=== PATIENT | female | born 1935 | race Caucasian/White ===

== ENCOUNTER 2022-04-01 22:06 | Inpatient (IN) ==
[2022-04-01] MEDS ORDERED: ONDANSETRON 4 MG/2 ML VIAL IV STA (22:43)
[2022-04-01] MEDS ORDERED: SODIUM CHLORIDE 0.9% 1,000 ML IV STA (22:43)
[2022-04-01 22:52] LABS: Basophils % 0.3 % (0.0-0.8); Eosinophils % 0.1 % (0.00-10.9); Hematocrit 37.9 VOL% (35.7-47.0); Hemoglobin 12.1 GM/DL (12.0-16.0); Immature Granulocytes % 0.5 %; Immature Granulocytes Absolute 0.05 #; Lymphocytes # 0.9 10*3/uL (1.4-4.0); Lymphocytes % 9.4 % (21.3-54.2); Mean Corpuscular HGB Conc 31.9 GM/DL (32-36); Mean Corpuscular Volume 90.5 FL (87-102); Mean Platelet Volume 11.6 FL (9.6-12.0); Monocytes # 0.1 10*3/uL (0.11-0.8); Monocytes % 0.6 % (1.7-12.7); Neutrophils % 89.1 % (38.7-73.9); Platelet Count 287 T/CUMM (130-400); Red Blood Count 4.19 MC/CUMM (3.8-5.5); Red Cell Distribution Width 13.1 % (9.3-17.3)
[2022-04-01 23:04] LABS: Albumin 3.8 G/DL (3.4-5.0); Bilirubin,Total 0.5 MG/DL (0.20-1.00); Calcium 10.2 MG/DL (8.5-10.1); Osmolality,Calculated 281.8 MOS/KG (273-304); Potassium 4.1 MMOL/L (3.5-5.1); Total Protein 7.3 G/DL (6.4-8.2)
[2022-04-02] MEDS ORDERED: PROMETHAZINE INJ 25 MG in SODIUM CHLORIDE 0.9% 50 ML IV STA (00:18)
[2022-04-02] MEDS ORDERED: PROMETHAZINE 25 MG/1 ML VIAL ONE (00:27)
[2022-04-02 00:45] LABS: Mucus,Urine Occasional /LPF (Occasional); RBC,Urine 51 /HPF (0-4)
[2022-04-02 00:46] LABS: Urine Appearance Clear (Clear); Urine Color Yellow (Yellow)
[2022-04-02 00:47] LABS: Bilirubin,Urine Negative (Negative); Blood, Urine Large mg/dL (Negative); Glucose,Urine (UA) Negative (Negative); Ketones,Urine Negative (Negative); Nitrite,Urine Positive (Negative); Protein,Urine 30 mg/dL (Negative); Urine Specific Gravity 1.005 (1.001-1.035); Urine Urobilinogen 0.2 eU/dL (<2.0); Urine pH 5.5 (4.5-8.0)
[2022-04-02] MEDS ORDERED: cefTRIAXone 1,000 MG in SODIUM CHLORIDE 0.9% 100 ML IV STA (00:49)
[2022-04-02] MEDS ORDERED: SODIUM CHLORIDE 0.9% 1,000 ML IV STA (01:01)
[2022-04-02] MEDS ORDERED: DILTIAZEM 50 MG/10 ML VIAL IV STA (02:00)
[2022-04-02] MEDS ORDERED: MORPHINE 2 MG/1 ML SYRINGE IV PRN (02:16)
[2022-04-02] MEDS ORDERED: GLUCAGON 1 MG VIAL IM PRN (02:16)
[2022-04-02] MEDS ORDERED: hydrALAZINE 20 MG/1 ML VIAL IV PRN (02:16)
[2022-04-02] MEDS ORDERED: DEXTROSE 10% 250 ML BAG IV PRN (02:23)
[2022-04-02] MEDS: SODIUM CHLORIDE 0.9% 1,000 ML IV SCH ×2 (04:07→17:00)
[2022-04-02 04:58] LABS: Basophils % 0.2 % (0.0-0.8); Hematocrit 30.8 VOL% (35.7-47.0); Immature Granulocytes % 0.5 %; Immature Granulocytes Absolute 0.09 #; Lymphocytes # 0.5 10*3/uL (1.4-4.0); Lymphocytes % 2.4 % (21.3-54.2); Mean Corpuscular HGB Conc 32.5 GM/DL (32-36); Mean Corpuscular Volume 92.8 FL (87-102); Mean Platelet Volume 11.5 FL (9.6-12.0); Monocytes % 5.4 % (1.7-12.7); Neutrophils % 91.5 % (38.7-73.9); Platelet Count 217 T/CUMM (130-400); Red Blood Count 3.32 MC/CUMM (3.8-5.5); Red Cell Distribution Width 13.2 % (9.3-17.3); White Blood Count 19.3 T/CUMM (4-12)
[2022-04-02 05:20] LABS: Alanine Aminotransferase 15 U/L (13-56); Albumin 2.6 G/DL (3.4-5.0); Alkaline Phosphatase 81 U/L (45-117); Aspartate Amino Transferase 14 U/L (0-37); Bilirubin,Total < 0.39 MG/DL (0.20-1.00); Blood Urea Nitrogen 20 MG/DL (7-18); Calcium 9.1 MG/DL (8.5-10.1); Carbon Dioxide 23 MMOL/L (21-32); Chloride 111 MMOL/L (98-107); Glucose 171 MG/DL (74-106); Potassium 3.8 MMOL/L (3.5-5.1); Sodium 143 MMOL/L (136-145); Total Protein 5.6 G/DL (6.4-8.2)
[2022-04-02 05:21] LABS: Band Neutrophils 5 % (0-10); Lymphocytes 2 % (20-55); Platelet Estimate Adequate; Total Cells Counted 100
[2022-04-02] MEDS: THYROID 60 MG TABLET PO SCH (06:33)
[2022-04-02] MEDS: INSULIN LISPRO 100 UNIT/ML SUBCUT SCH ×4 (08:13→20:37)
[2022-04-02] MEDS: MULTIVITAMIN (OCUVITE) TABLET PO SCH (09:42)
[2022-04-02] MEDS: CLOPIDOGREL 75 MG TABLET PO SCH (09:42)
[2022-04-02] MEDS: CHOLECALCIFEROL 1,000 UNIT TABLET PO SCH (09:42)
[2022-04-02] MEDS: DABIGATRAN 150 MG CAPSULE PO SCH ×2 (09:42→20:36)
[2022-04-02] MEDS: LOSARTAN 50 MG TABLET PO SCH (09:42)
[2022-04-02] MEDS: DILTIAZEM CD 300 MG CAPSULE PO SCH (09:43)
[2022-04-02] MEDS: PANTOPRAZOLE 40 MG TABLET PO SCH (09:43)
[2022-04-02] MEDS: ASCORBIC ACID 500 MG TABLET PO SCH ×2 (09:43→20:36)
[2022-04-02] MEDS: VENLAFAXINE 75 MG TABLET PO SCH (09:43)
[2022-04-02] MEDS: MAGNESIUM CHLORIDE 64 MG TABLET PO SCH ×2 (09:43→20:36)
[2022-04-02] MEDS: DONEPEZIL 5 MG TABLET PO SCH (20:36)
[2022-04-03] MEDS: cefTRIAXone 1,000 MG in SODIUM CHLORIDE 0.9% 100 ML IV SCH (02:55)
[2022-04-03 04:37] LABS: Basophils # 0.1 10*3/uL (0.0-0.2); Basophils % 0.4 % (0.0-0.8); Eosinophils # 0.1 10*3/uL (0.0-0.87); Eosinophils % 0.6 % (0.00-10.9); Hematocrit 29.7 VOL% (35.7-47.0); Hemoglobin 9.4 GM/DL (12.0-16.0); Immature Granulocytes % 0.5 %; Immature Granulocytes Absolute 0.07 #; Lymphocytes # 1.7 10*3/uL (1.4-4.0); Lymphocytes % 12.3 % (21.3-54.2); Mean Corpuscular HGB Conc 31.6 GM/DL (32-36); Mean Corpuscular Volume 93.1 FL (87-102); Mean Platelet Volume 12.3 FL (9.6-12.0); Monocytes # 1.6 10*3/uL (0.11-0.8); Monocytes % 11.1 % (1.7-12.7); Neutrophils % 75.1 % (38.7-73.9); Platelet Count 207 T/CUMM (130-400); Red Blood Count 3.19 MC/CUMM (3.8-5.5); Red Cell Distribution Width 13.3 % (9.3-17.3); White Blood Count 13.94 T/CUMM (4-12)
[2022-04-03 05:07] LABS: Albumin 2.6 G/DL (3.4-5.0); Calcium 8.6 MG/DL (8.5-10.1); Osmolality,Calculated 286.1 MOS/KG (273-304); Potassium 3.9 MMOL/L (3.5-5.1)
[2022-04-03] MEDS: THYROID 60 MG TABLET PO SCH (05:54)
[2022-04-03] MEDS: LOSARTAN 50 MG TABLET PO SCH (09:17)
[2022-04-03] MEDS: MAGNESIUM CHLORIDE 64 MG TABLET PO SCH ×2 (09:17→20:30)
[2022-04-03] MEDS: CHOLECALCIFEROL 1,000 UNIT TABLET PO SCH (09:17)
[2022-04-03] MEDS: PANTOPRAZOLE 40 MG TABLET PO SCH (09:17)
[2022-04-03] MEDS: DILTIAZEM CD 300 MG CAPSULE PO SCH (09:18)
[2022-04-03] MEDS: MULTIVITAMIN (OCUVITE) TABLET PO SCH (09:18)
[2022-04-03] MEDS: VENLAFAXINE 75 MG TABLET PO SCH (09:18)
[2022-04-03] MEDS: DABIGATRAN 150 MG CAPSULE PO SCH ×2 (09:18→20:30)
[2022-04-03] MEDS: ASCORBIC ACID 500 MG TABLET PO SCH ×2 (09:18→20:30)
[2022-04-03] MEDS: CLOPIDOGREL 75 MG TABLET PO SCH (09:18)
[2022-04-03] MEDS: INSULIN LISPRO 100 UNIT/ML SUBCUT SCH ×4 (09:55→20:30)
[2022-04-03] MEDS: ONDANSETRON 4 MG/2 ML VIAL IV PRN (10:16)
[2022-04-03] MEDS: DONEPEZIL 5 MG TABLET PO SCH (20:30)
[2022-04-03] MEDS ORDERED: PROMETHAZINE INJ 12.5 MG in SODIUM CHLORIDE 0.9% 50 ML IV PRN (20:48)
[2022-04-04] MEDS: cefTRIAXone 1,000 MG in SODIUM CHLORIDE 0.9% 100 ML IV SCH (02:00)
[2022-04-04] MEDS: THYROID 60 MG TABLET PO SCH ×2 (06:10→09:03)
[2022-04-04] MEDS: ASCORBIC ACID 500 MG TABLET PO SCH ×2 (08:47→21:36)
[2022-04-04] MEDS: MULTIVITAMIN (OCUVITE) TABLET PO SCH (08:47)
[2022-04-04] MEDS: VENLAFAXINE 75 MG TABLET PO SCH (08:48)
[2022-04-04] MEDS: MAGNESIUM CHLORIDE 64 MG TABLET PO SCH ×2 (08:48→21:36)
[2022-04-04] MEDS: PANTOPRAZOLE 40 MG TABLET PO SCH (08:48)
[2022-04-04] MEDS: CHOLECALCIFEROL 1,000 UNIT TABLET PO SCH (08:48)
[2022-04-04] MEDS: DILTIAZEM CD 300 MG CAPSULE PO SCH (08:48)
[2022-04-04] MEDS: LOSARTAN 50 MG TABLET PO SCH (08:49)
[2022-04-04] MEDS: CLOPIDOGREL 75 MG TABLET PO SCH (08:50)
[2022-04-04] MEDS: DABIGATRAN 150 MG CAPSULE PO SCH ×2 (08:53→21:36)
[2022-04-04] MEDS: ONDANSETRON 4 MG/2 ML VIAL IV PRN (10:08)
[2022-04-04] MEDS: INSULIN LISPRO 100 UNIT/ML SUBCUT SCH ×2 (10:12→19:10)
[2022-04-04 10:49] LABS: Basophils % 0.2 % (0.0-0.8); Eosinophils % 0.1 % (0.00-10.9); Hematocrit 29.6 VOL% (35.7-47.0); Hemoglobin 9.7 GM/DL (12.0-16.0); Immature Granulocytes % 0.6 %; Immature Granulocytes Absolute 0.09 #; Lymphocytes # 1.7 10*3/uL (1.4-4.0); Lymphocytes % 11.5 % (21.3-54.2); Mean Corpuscular HGB Conc 32.8 GM/DL (32-36); Mean Corpuscular Volume 90.2 FL (87-102); Mean Platelet Volume 11.8 FL (9.6-12.0); Monocytes # 1.3 10*3/uL (0.11-0.8); Monocytes % 8.8 % (1.7-12.7); Neutrophils % 78.8 % (38.7-73.9); Platelet Count 228 T/CUMM (130-400); Red Blood Count 3.28 MC/CUMM (3.8-5.5); Red Cell Distribution Width 12.7 % (9.3-17.3); White Blood Count 14.91 T/CUMM (4-12)
[2022-04-04 11:13] LABS: Calcium 8.8 MG/DL (8.5-10.1); Osmolality,Calculated 281.4 MOS/KG (273-304); Potassium 3.3 MMOL/L (3.5-5.1)
[2022-04-04] MEDS ORDERED: MAGNESIUM SULF RIDER 4 GM/100 ML PREMIX IV ONE (12:21)
[2022-04-04] MEDS: POTASSIUM CHLORIDE 20 MEQ TABLET PO SCH ×2 (12:43→18:30)
[2022-04-04] MEDS ORDERED: ESCITALOPRAM 10 MG TABLET PO ONE (21:00)
[2022-04-04] MEDS: DONEPEZIL 5 MG TABLET PO SCH (21:36)
[2022-04-05] MEDS: cefTRIAXone 1,000 MG in SODIUM CHLORIDE 0.9% 100 ML IV SCH (02:55)
[2022-04-05 04:56] LABS: Basophils % 0.2 % (0.0-0.8); Eosinophils # 0.1 10*3/uL (0.0-0.87); Eosinophils % 0.6 % (0.00-10.9); Hematocrit 30.4 VOL% (35.7-47.0); Hemoglobin 9.7 GM/DL (12.0-16.0); Immature Granulocytes % 0.5 %; Immature Granulocytes Absolute 0.06 #; Lymphocytes # 1.4 10*3/uL (1.4-4.0); Lymphocytes % 11.7 % (21.3-54.2); Mean Corpuscular HGB Conc 31.9 GM/DL (32-36); Mean Corpuscular Volume 91.6 FL (87-102); Mean Platelet Volume 12.3 FL (9.6-12.0); Monocytes # 1.3 10*3/uL (0.11-0.8); Monocytes % 10.5 % (1.7-12.7); Neutrophils % 76.5 % (38.7-73.9); Platelet Count 234 T/CUMM (130-400); Red Blood Count 3.32 MC/CUMM (3.8-5.5); Red Cell Distribution Width 12.8 % (9.3-17.3); White Blood Count 12.24 T/CUMM (4-12)
[2022-04-05 05:17] LABS: Calcium 9.4 MG/DL (8.5-10.1); Osmolality,Calculated 279.5 MOS/KG (273-304); Potassium 4.3 MMOL/L (3.5-5.1)
[2022-04-05] MEDS: THYROID 60 MG TABLET PO SCH (06:10)
[2022-04-05] MEDS: MULTIVITAMIN (OCUVITE) TABLET PO SCH (09:15)
[2022-04-05] MEDS: DABIGATRAN 150 MG CAPSULE PO SCH ×2 (09:15→21:34)
[2022-04-05] MEDS: MAGNESIUM CHLORIDE 64 MG TABLET PO SCH ×2 (09:16→21:34)
[2022-04-05] MEDS: ASCORBIC ACID 500 MG TABLET PO SCH ×2 (09:16→21:34)
[2022-04-05] MEDS: DILTIAZEM CD 300 MG CAPSULE PO SCH (09:16)
[2022-04-05] MEDS: LOSARTAN 50 MG TABLET PO SCH (09:16)
[2022-04-05] MEDS: CLOPIDOGREL 75 MG TABLET PO SCH (09:16)
[2022-04-05] MEDS: VENLAFAXINE 75 MG TABLET PO SCH (09:16)
[2022-04-05] MEDS: CHOLECALCIFEROL 1,000 UNIT TABLET PO SCH (09:17)
[2022-04-05] MEDS: PANTOPRAZOLE 40 MG TABLET PO SCH (09:17)
[2022-04-05] MEDS: DONEPEZIL 5 MG TABLET PO SCH (21:35)
[2022-04-06] MEDS: cefTRIAXone 1,000 MG in SODIUM CHLORIDE 0.9% 100 ML IV SCH (02:42)
[2022-04-06] MEDS: THYROID 60 MG TABLET PO SCH (06:22)
[2022-04-06 08:01] VITALS: BP 126/66
[2022-04-06] MEDS: ASCORBIC ACID 500 MG TABLET PO SCH (08:57)
[2022-04-06] MEDS: DABIGATRAN 150 MG CAPSULE PO SCH (08:57)
[2022-04-06] MEDS: CHOLECALCIFEROL 1,000 UNIT TABLET PO SCH (08:57)
[2022-04-06] MEDS: LOSARTAN 50 MG TABLET PO SCH (08:57)
[2022-04-06] MEDS: MAGNESIUM CHLORIDE 64 MG TABLET PO SCH (08:57)
[2022-04-06] MEDS: MULTIVITAMIN (OCUVITE) TABLET PO SCH (08:58)
[2022-04-06] MEDS: VENLAFAXINE 75 MG TABLET PO SCH (08:58)
[2022-04-06] MEDS: CLOPIDOGREL 75 MG TABLET PO SCH (08:59)
[2022-04-06] MEDS: PANTOPRAZOLE 40 MG TABLET PO SCH (08:59)
[2022-04-06] MEDS: DILTIAZEM CD 300 MG CAPSULE PO SCH (09:01)
== END 2022-04-06 11:20 | disposition home health service (06) | DRG 690 ==
LOC: N.ED 22:06 → SUATTDRO 04-02 02:10 → N.EDINP 04-02 02:10 → N.TELES 04-02 03:02
PROVIDERS: ADMIT Internal Medicine Geriatric Medicine; ATTEND Internal Medicine